=== PATIENT | female | born 1970 | race African-American/Black ===

== ENCOUNTER 2023-03-09 22:24 | Emergency (ER) | payer OTHER ==
[~2023-03-09] VITALS: Ht 165.1 cm; Wt 113.0 kg
[2023-03-09 22:31] VITALS: O2SAT 99
[2023-03-09 23:34] VITALS: BP 158/86
[2023-03-09] MEDS: LIDOCAINE 5% PATCH TOP SCH (23:34)
[2023-03-09] MEDS ORDERED: LIDO700A15 TP (23:46)
[2023-03-10 01:01] VITALS: PULSE 98; RESP 18; TEMP 98.3
== END 2023-03-10 01:01 | disposition home or self-care (01) ==
LOC: ER 22:24
DX: S60.222A Contusion of left hand, initial encounter (principal); S60.221A Contusion of right hand, initial encounter; F32.A Depression, unspecified; R07.89 Other chest pain; I10 Essential (primary) hypertension; M19.90 Unspecified osteoarthritis, unspecified site; Z88.2 Allergy status to sulfonamides; Z88.5 Allergy status to narcotic agent; Z88.6 Allergy status to analgesic agent; Z88.8 Allergy status to other drugs, medicaments and biological substances; V89.2XXA Person injured in unspecified motor-vehicle accident, traffic, initial encounter; Y93.89 Activity, other specified; Y92.89 Other specified places as the place of occurrence of the external cause; Y99.8 Other external cause status
CPT/HCPCS: 71045; 73130; 93005; 99284